=== PATIENT | male | born 1985 | race Two or more races ===

== ENCOUNTER 2019-02-22 23:32 | Emergency (ER) | payer BC ==
[~2019-02-22] VITALS: Ht 177.8 cm; Wt 74.8 kg
[2019-02-22] MEDS ORDERED: LET TOPICAL SOLUTION 8 ML UDC ONE (23:56)
[2019-02-23] MEDS ORDERED: LET TOPICAL SOLUTION 8 ML UDC TP ONE
--- NOTE | 2019-02-23 00:35 | NUR ---
RT FOREARM WAS IRRIGATED PRIOR TO XRAY.
[2019-02-23] MEDS ORDERED: SODIUM BICARBONATE 4.2 % (NEUT) 5 ML VIAL TP ONE (01:00)
[2019-02-23] MEDS ORDERED: NEOMY/BACITRA/POLYMYXIN B OINT UD PACKET TP ONE ×2 (01:00→01:29)
[2019-02-23] MEDS ORDERED: LIDOCAINE HCL 2% 20 ML VIAL TP ONE (01:00)
--- NOTE | 2019-02-23 01:41 | NUR ---
Patient discharged to home in stable conditon. Written and verbal after care instructions given. Patient verbalizes understanding of instructions. AMBULATORY W/ STABLE GAIT ALL BELONGINGS W/ PT R FOREARM DRESSED
[2019-02-23 01:43] VITALS: BP 138/87
== END 2019-02-23 01:43 | disposition home or self-care (01) ==
LOC: ER 23:40
DX: S51.811A Laceration without foreign body of right forearm, initial encounter (principal); W26.8XXA Contact with other sharp object(s), not elsewhere classified, initial encounter; Y93.89 Activity, other specified; Y92.89 Other specified places as the place of occurrence of the external cause; Y99.8 Other external cause status
CPT/HCPCS: 12002; 73090; 99283; J3490 ×2; A4217; A4663